=== PATIENT | female | born 1975 | race Caucasian/White ===

== ENCOUNTER 2025-06-21 21:37 | Emergency (ER) | payer MEDICAID ==
[2025-06-21 21:49] VITALS: BP 140/83; PULSE 86; RESP 20; O2SAT 100
--- NOTE | 2025-06-21 22:53 | RADIOLOGY REPORT ---
CLINICAL INDICATION: KNEE PAIN TECHNIQUE: 3 views DI KNEE, COMP 4 VW MIN Comparison: None FINDINGS: No acute fracture or joint malalignment. Small joint effusion suspected. Mild tricompartmental osteoarthrosis with diffuse osteopenia. Unremarkable soft tissues. IMPRESSION: 1. No acute osseous abnormality of the right knee.
--- NOTE | 2025-06-21 23:08 | Physician Documentation ---
History of Present Illness ~ Chief Complaint: Knee Pain Stated Complaint: RIGHT KNEE PAIN Time Seen by MD: 22:50 HPI This is a 49-year-old female with a known history of chronic right knee pain. She lives in [place], she was visiting a gentleman here in [place]. She decided to be evaluated at [facility] for her chronic right knee pain because she feels that her medial aspect of the knee is more painful today than usual and and the knee is going to blow out". While at [facility], supposedly she was told in triage that there is nothing they can do for me. So she decided to leave, while leaving, her foot got caught at the base of the wheelchair and she fell onto her right knee. She states they did not do anything for me, they just watched therefore she got up and came to us for further evaluation. At the time of my examination she complains of moderate to severe pain in the m edial aspect of her right knee. She feels that the medial aspect of the right knee is swollen. She is able to ambulate and walked in under her own power. Did not attempt to treat her pain. She reports that she has had multiple evaluations by orthopedic surgeons in [place], but my surgeon moved, I need new surgeon. She also reports that she has not appointment with the pain management on Sunday, two days from now. Denies any other injury. Medication Reconciliation Allergies: Coded Allergies: theophylline (Verified Allergy, Unknown, 06/21/25) Review of Systems ROS 10 point review of systems was performed and unless noted above in HPI is negative for acute process/complaint. Physical Exam Vital Signs: Heart Rate: 86, Respiratory Rate: 20, BP: 140/83, Pulse Oximetry: 100 Physical Exam Physical examination: GENERAL: Awake, alert, oriented, GCS 15, no apparent distress, non-toxic appearing, answers questions, follows commands appropriately. HEENT: Atraumatic, normocephalic, pupils equal, extraocular muscles intact Active gross movements, sclerae anicteric, mucus membranes moist, no stridor. NECK: Midline, no JVD CARDIOVASCULAR: Good skin perfusion without evidence of pallor, mottling. PULMONARY: Nonlabored, symmetric chest rise, no audible wheezing, no accessory muscle use, no respiratory distress, speaking in full sentences. GASTROINTESTINAL: Not distended. NEUROLOGIC: Lucid with normal mental status. Normal facial symmetry. Moves all extremities symmetrically and with purpose. No truncal ataxia. Speech is fluid without evidence of dysarthria or aphasia, no focal deficits appreciated. EXTREMITIES: Acute deformities Skin: warm, dry PSYCHIATRIC: Normal affect, normal insight, normal concentration. Focused exam: [I do not appreciate significant size difference between the right knee and the contralateral side. The patient is tenderness to palpation over the medial aspect of the knee. There is no crepitus. No obvious deformity. Neurovascularly intact distally.] Progress Results/Orders Results/Orders Orders - MARIZA MCKEON DO Knee, Complete (06/21/25 22:05) Completed Orders - MARIZA MCKEON DO Knee, Complete (06/21/25 22:05) Vital Signs 06/21/25 21:49 Pulse 86 Resp 20 B/P (MAP) 140/83 Pulse Ox 100 Medical Decision Making Additional information obtaine: family Findings Facility Status: ED Holds, RME process The plan was discussed with the patient, who demonstrates clear understanding of the plan and is in agreement with the plan unless otherwise noted in the chart. All questions have been answered, all concerns were addressed unless otherwise documented. I was available throughout their ED stay for frequent reassessment and questions. Differential Diagnoses (considered and possible or likely): [Chronic knee pain, ground level fall, acute traumatic pain, right knee contusion, less likely fracture or dislocation.] ??Differential Diagnoses (considered and unlikely, not requiring evaluation currently): [No evidence of neurovascular injury, DVT is unlikely.] MDM Data Please see [facility] for the following: Independent Historians and external Records Review. Historian: [Patient] Independent Historians: ?[Family member] Medication Management: [Reviewed medication list] Social History and determinants: [Reviewed] Please see the body of the note for the following: Any independent interpretations of ECG, imaging studies. All vitals signs/haemodynamics, ordered tests were independently reviewed and interpreted by myself. Nursing triage complaint and vitals reviewed, additional nursing notes were reviewed as available and I agree unless otherwise noted or documented in contradiction in the chart Vital Signs: Independently reviewed Labs: Independently interpreted Imaging: Independently interpreted Old Medical Records: Independently reviewed, see [facility] for relevant summary and information Additionally notably showing: [Hemodynamically stable. X-ray shows no fracture.] Tests considered but not ordered include: [Hematologic workup has been conside red but does not appear to be necessary given mechanical nature of the injury.] Social Determinants of Health Impact: Patient was evaluated in [facility], or [facility] [place] to healthcare due to below par ratio of patient to medical providers. [] Comorbid Conditions Impacting Present Evaluation and Care/Treatment: [Chronic knee pain] Management Discussions with other Healthcare Providers: [None] Treatment and Disposition Medication Management (Given or considered): []. See EMR for details Consideration for Hospitalization/Escalation/Deescalation of Care: Admission for observation has been considered, [however the patient is able to tolerate p.o., their symptoms are controlled, they are able to rely on oral medications, and their chief complaint/diagnosis can be managed on outpatient basis.] ?ED Course:?[I feel that chronic aspect of her knee pain needs to be worked up outpatient. Evidently she already has a referral pending to [facility]. Pain management in the absence of fracture can be done with the [id number] medications. Highly unlikely to be a DVT given localized area on the of the knee medial aspect, and absence of calf swelling or calf tenderness. With a respect to acute injury there is no acute fracture. The patient does not require any acute intervention, other than knee immobilizer and crutches.] ?Shared decision making:?[Patient is hemodynamically stable for discharge home with follow with their primary care provider. [ ] Specific and cautious return precautions provided and discussed with full understanding. Any incidental findings were also discussed and follow up recommendations given. [] All questions answered. Patient/family were able to verbalize back return precautions. Patient/family agree to plan. Copies of imaging and laboratory studies were provided.] Code status:?FULL Please see the full Electronic Medical Record for full details of nursing documentation, medications list, other records of complete past medical history and conditions, vital signs, laboratory studies, and any radiologic study interpretations by radiologists. Portions of this note were completed using [employer] dictation software and as a result there may exist minor errors in spelling. I have reviewed elements of past family and social history and agree as included in note. General Diff Dx:Considerations: Unlikely: Other Knee Diff Dx:Considerations: Unlikely: Other Ankle Diff Dx:Considerations: Unlikely: Other Foot Diff Dx:Considerations: Unlikely: Other Toe Diff Dx:Considerations: Unlikely: Other Additional Comment See the body of main note for differential diagnosis Departure Disposition: HOME / SELF CARE / HOMELESS Impression: Primary Impression: Ground-level fall Additional Impressions: Acute traumatic pain Contusion of right knee Condition: Stable Discharge Instructions: Acute Knee Pain, Adult Referrals: NO PRIMARY CARE PROVIDER (PCP) BOB RODRIGUEZ Jr., MD 2 days Please follow-up with the orthopedic surgeon of your choice. Most likely you will need an MRI for your chronic knee pain with a potential acute injury from fall at [facility]. Education Educated: Patient, Family Educated regarding: diagnosis, treatment, prognosis, need for follow up Signature Scribe Signature: No scribe Attestation: Date: Jun 21, 2025 Time: 23:09 This note accurately reflects clinical decisions, work performed by myself, DO MIKE Loya NICHOLAS M DO Jun 21, 2025 23:08
== END 2025-06-22 00:23 | disposition home or self-care (01) ==
LOC: ER 21:38
DX: S80.01XA Contusion of right knee, initial encounter (principal); W18.30XA Fall on same level, unspecified, initial encounter; Y93.89 Activity, other specified; Y92.89 Other specified places as the place of occurrence of the external cause; Y99.8 Other external cause status
CPT/HCPCS: 73564; 99284